=== PATIENT | male | born 1990 | race Two or more races ===

== ENCOUNTER 2023-03-25 07:11 | Outpatient (CLI) | payer OTHER | END 2023-03-25 07:12 | disposition home or self-care (01) | LOC: BICCT 07:11 | PROVIDERS: ATTEND Surgery | DX: M51.16 Intervertebral disc disorders with radiculopathy, lumbar region (principal); M43.17 Spondylolisthesis, lumbosacral region; M48.07 Spinal stenosis, lumbosacral region | CPT/HCPCS: 72131 ==

== ENCOUNTER 2023-05-31 09:09 | Outpatient (CLI) | payer OTHER ==
[2023-05-31 10:06] LABS: Anion Gap 15 mmol/L (10-20); BUN (Urea Nitrogen) 16 mg/dL (8.9-20.6); Calc. Creatinine Clearance 0 mL/min (70-130); Calcium 9.4 mg/dL (7.8-10.44); Carbon Dioxide 27 mmol/L (22-29); Chloride 102 mmol/L (98-107); Estimated GFR 70; Glucose 126 mg/dL (70-105); Hematocrit 48.4 % (38.8-50.0); Hemoglobin 16.4 g/dL (13.5-17.5); Mean Corpuscular HGB CONC 33.9 g/dL (32.0-36.0); Mean Corpuscular Volume 79.6 fl (81.2-95.1); Mean Platelet Volume 9.8 fl (7.4-10.4); PTT 33.9 sec (22.0-33.0); Platelet Count 242 10x3/uL (150-450); Potassium 4.1 mmol/L (3.5-5.1); Prothrombin Time 10.9 sec (9.5-12.1); RBC Distribution Width 12.9 % (11.5-14.5); Red Blood Cell (RBC) Count 6.08 10x6/uL (4.32-5.72); Sodium 140 mmol/L (136-145); White Blood Cell (WBC) Count 7.7 10x3/uL (3.5-10.5)
== END 2023-05-31 09:10 | disposition home or self-care (01) ==
LOC: LABBT 09:09
PROVIDERS: ATTEND Surgery
DX: Z01.818 Encounter for other preprocedural examination (principal); M47.26 Other spondylosis with radiculopathy, lumbar region
CPT/HCPCS: 80048; 85027; 85610; 85730; 93005; 93010

== ENCOUNTER 2023-06-02 05:38 | Inpatient (IN) | payer OTHER ==
[2023-05-31 09:42] VITALS: BMI 35.2
[2023-06-02] MEDS ORDERED: Vancomycin 1 GM VIAL ONE (06:26)
[2023-06-02] MEDS ORDERED: Thrombin 5000 UNITS/5 ML VIAL ONE (06:26)
[2023-06-02] MEDS ORDERED: Ketamine In 0.9 % NaCl 50 MG/5 ML SYRINGE ONE (06:48)
[2023-06-02] MEDS ORDERED: PROPOFOL 20 ML ONE (06:48)
[2023-06-02] MEDS ORDERED: Lidocaine 1% PF 5 ML VIAL ONE (06:48)
[2023-06-02] MEDS ORDERED: Fentanyl 250 MCG/5 ML VIAL ONE (06:48)
[2023-06-02] MEDS ORDERED: Rocuronium Bromide 10 MG/ML (10ML VIAL) ONE (06:48)
[2023-06-02] MEDS ORDERED: Midazolam HCl 2 mg/2 ml Vial ONE (07:21)
[2023-06-02] MEDS ORDERED: CEFAZOLIN 2 GM VIAL ONE (07:21)
[2023-06-02] MEDS ORDERED: Sodium Chloride 0.9% 100 ML ONE (07:22)
[2023-06-02] MEDS ORDERED: Ondansetron PF 4 MG/2 ML Vial ONE (08:31)
[2023-06-02] MEDS ORDERED: Dexamethasone 20 MG/5 ML VIAL ONE (08:31)
[2023-06-02] MEDS ORDERED: Ketorolac Tromethamine 30 MG (1 mL) VIAL ONE (08:31)
[2023-06-02] MEDS ORDERED: Sodium Chloride 0.9% 250 ML 250 ML ONE (08:38)
[2023-06-02] MEDS ORDERED: Vecuronium 10 MG VIAL ONE (09:51)
[2023-06-02] MEDS ORDERED: CEFAZOLIN 1 GM VIAL ONE (11:06)
[2023-06-02] MEDS ORDERED: Sterile Water 20 ML ONE (11:06)
[2023-06-02] MEDS ORDERED: NEOSTIGMINE 3 MG/3 ML SYR 3 MG/3 ML SYRINGE ONE (11:36)
[2023-06-02] MEDS ORDERED: Glycopyrrolate 0.2 MG/ML 5 ML SYRINGE ONE (11:36)
[2023-06-02] MEDS ORDERED: Lidocaine 2% PF 5 ML VIAL ONE (11:43)
[2023-06-02] MEDS ORDERED: Dexmedetomidine 200 MCG/2 ML VIAL ONE (11:58)
[2023-06-02] MEDS ORDERED: HYDROmorphone 2 MG/ML VIAL SLOW IVP PRN (12:14)
[2023-06-02] MEDS ORDERED: Promethazine HCl 25 MG/ML VIAL IM PRN ×2 (12:14→13:30)
[2023-06-02] MEDS ORDERED: PACU-Morphine 4MG/ML VIAL SLOW IVP PRN (12:14)
[2023-06-02] MEDS ORDERED: Morphine Sulfate 2 MG/ML SYRINGE SLOW IVP PRN (12:14)
[2023-06-02] MEDS ORDERED: Ondansetron HCl/PF 4 MG/2 ML Vial IVP PRN (12:14)
[2023-06-02] MEDS ORDERED: Acetaminophen 325 MG TAB PO PRN (12:36)
[2023-06-02] MEDS ORDERED: diphenhydrAMINE 25 MG CAP PO PRN ×2 (12:36→13:30)
[2023-06-02] MEDS ORDERED: Ondansetron PF 4 MG/2 ML Vial IVP PRN ×2 (12:36→13:30)
[2023-06-02] MEDS ORDERED: tiZANidine HCl 4 MG TAB PO PRN (12:38)
[2023-06-02] MEDS ORDERED: hydrOXYzine 25 MG TAB PO PRN (12:38)
[2023-06-02] MEDS ORDERED: HYDROmorphone 0.5 MG/0.5 ML SYRINGE ONE ×3 (13:05→13:47)
[2023-06-02] MEDS ORDERED: HYDROmorphone/PF 10 MG in Sodium Chloride 0.9% 99 ML IVPB PRN (13:30)
[2023-06-02] MEDS ORDERED: diphenhydrAMINE 50 MG/ML VIAL IM/IV PRN (13:30)
[2023-06-02] MEDS ORDERED: Naloxone HCl 0.4 mg/ml Vial IV PRN (13:30)
[2023-06-02] MEDS ORDERED: Zolpidem Tartrate 5 MG TAB PO PRN (13:30)
[2023-06-02] MEDS: Sodium Chloride 0.9% 1,000 ML IV SCH (14:45)
[2023-06-02] MEDS: Ketorolac Tromethamine 30 MG (1 mL) VIAL IVP SCH (18:21)
[2023-06-02] MEDS: CEFAZOLIN 2 GM in Sodium Chloride 0.9% 100 ML IVPB SCH (18:21)
[2023-06-02] MEDS: Sertraline 100 MG TAB PO SCH (20:17)
[2023-06-03 04:52] LABS: #Neutrophils 12.8 thou/uL (1.40-6.50); %Basophils 0.2 % (0.0-1.0); %Lymphocytes 14.6 % (21.0-51.0); %Monocytes 6.1 % (0.0-10.0); %Neutrophils 78.7 % (42.0-75.0); Hematocrit 38.7 % (42.0-52.0); Hemoglobin 12.8 g/dL (14.0-18.0); Mean Corpuscular HGB CONC 33.1 g/dL (32.0-36.0); Mean Corpuscular Hemoglobin 26.8 pg (27.0-31.0); Mean Corpuscular Volume 81.1 fl (78.0-98.0); Mean Platelet Volume 10.3 fL (7.4-10.4); Platelet Count 231 10x3/uL (130-400); RBC Distribution Width 12.9 % (11.5-14.5); Red Blood Cell (RBC) Count 4.77 mill/uL (4.70-6.10); White Blood Cell (WBC) Count 16.3 10x3/uL (4.8-10.8)
[2023-06-03 05:22] LABS: Anion Gap 12 mmol/L (10-20); BUN (Urea Nitrogen) 13 mg/dL (8.9-20.6); Calc. Creatinine Clearance 129 mL/min (70-130); Calcium 8.7 mg/dL (7.8-10.44); Carbon Dioxide 25 mmol/L (22-29); Chloride 105 mmol/L (98-107); Estimated GFR 83; Glucose 128 mg/dL (70-105); Potassium 3.6 mmol/L (3.5-5.1); Sodium 138 mmol/L (136-145)
[2023-06-03] MEDS ORDERED: HYDROcodone/Acetaminophen 5/325 mg Tablet PO PRN ×2 (06:53→07:05)
[2023-06-03] MEDS ORDERED: fentaNYL 50 mcg/mL 1 mL Vial SLOW IVP PRN (06:56)
[2023-06-03] MEDS ORDERED: AMPHETAMINE 20 MG PO SCH (09:00)
[2023-06-03] MEDS ORDERED: Ketorolac Tromethamine 30 MG (1 mL) VIAL IVP PRN (12:00)
[2023-06-05 05:45] VITALS: TEMP 98.7
[2023-06-05 07:40] VITALS: BP 124/74
== END 2023-06-05 09:45 | disposition home or self-care (01) | DRG 455 ==
LOC: SDC 05:38 → SURG B 12:40 → OBSVTOIN 06-03 13:43
PROVIDERS: ADMIT Surgery; ATTEND Surgery
PROC: 0SG30AJ Fusion of Lumbosacral Joint with Interbody Fusion Device, Posterior Approach, Anterior Column, Open Approach (ICD-10-PCS; principal; 2023-06-02)
PROC: 0SG3071 Fusion of Lumbosacral Joint with Autologous Tissue Substitute, Posterior Approach, Posterior Column, Open Approach (ICD-10-PCS; 2023-06-02)
PROC: 0SB40ZZ Excision of Lumbosacral Disc, Open Approach (ICD-10-PCS; 2023-06-02)
PROC: 01NB0ZZ Release Lumbar Nerve, Open Approach (ICD-10-PCS; 2023-06-02)
PROC: 01NR0ZZ Release Sacral Nerve, Open Approach (ICD-10-PCS; 2023-06-02)
DX: M43.17 Spondylolisthesis, lumbosacral region (principal); M48.061 Spinal stenosis, lumbar region without neurogenic claudication; M54.17 Radiculopathy, lumbosacral region; Z79.899 Other long term (current) drug therapy
CPT/HCPCS: 36415; 80048; 85025; 96365; 96375; 96376; A6258; C1713; C1889; G0378; J0690; J1100; J1170; J1885; J2001; J2250; J2405; J2704; J3010; J3370; J3490; J7050

== ENCOUNTER 2023-08-19 16:00 | Inpatient (IN) | payer OTHER ==
[2023-08-24] MEDS ORDERED: CEFAZOLIN 2 GM VIAL ONE (06:26)
[2023-08-24] MEDS ORDERED: Sodium Chloride 0.9% 100 ML ONE (06:26)
[2023-08-24] MEDS ORDERED: EPINEPHrine 1 MG/ML VIAL ONE (06:46)
[2023-08-24] MEDS ORDERED: Bupivacaine 0.25% HCL 30 ML VIAL ONE (06:47)
[2023-08-24] MEDS ORDERED: fentaNYL PF 100 MCG/2 ML SYRINGE ONE (07:03)
[2023-08-24] MEDS ORDERED: PROPOFOL 20 ML ONE (07:03)
[2023-08-24] MEDS ORDERED: Lidocaine 1% PF 5 ML VIAL ONE (07:04)
[2023-08-24] MEDS ORDERED: Rocuronium Bromide 10 MG/ML (10ML VIAL) ONE (07:04)
[2023-08-24] MEDS ORDERED: Scopolamine 1 mg/72 hour Patch ONE (07:21)
[2023-08-24] MEDS ORDERED: Dexamethasone 20 MG/5 ML VIAL ONE (07:50)
[2023-08-24] MEDS ORDERED: Ondansetron PF 4 MG/2 ML Vial ONE ×2 (07:50→09:19)
[2023-08-24] MEDS ORDERED: FENTANYL 500 MCG/10 ML VIAL 2,000 MCG in Sodium Chloride 0.9% 60 ML IV PRN (07:58)
[2023-08-24] MEDS ORDERED: Ondansetron HCl/PF 4 MG/2 ML Vial IVP PRN (07:58)
[2023-08-24] MEDS ORDERED: diphenhydrAMINE 50 MG/ML VIAL IVP PRN ×2 (07:58→11:12)
[2023-08-24] MEDS ORDERED: Naloxone HCl 0.4 mg/ml Vial IV PRN (07:58)
[2023-08-24] MEDS ORDERED: diphenhydrAMINE 50 MG/ML VIAL IM PRN (07:58)
[2023-08-24] MEDS ORDERED: Ondansetron PF 4 MG/2 ML Vial IVP PRN ×2 (07:58→11:12)
[2023-08-24] MEDS ORDERED: Promethazine HCl 25 MG/ML VIAL IM PRN ×3 (07:58→11:12)
[2023-08-24] MEDS ORDERED: diphenhydrAMINE 25 MG CAP PO PRN (07:58)
[2023-08-24] MEDS ORDERED: Communication Order-Pharmacy FS SCH (08:00)
[2023-08-24] MEDS ORDERED: SUGAMMADEX SODIUM 200 MG/2 ML VIAL ONE (08:27)
[2023-08-24] MEDS ORDERED: hydrOXYzine 25 MG TAB PO PRN (11:12)
[2023-08-24] MEDS ORDERED: Ipratropium/Albuterol 3 ML NEB NEB PRN (11:12)
[2023-08-24] MEDS ORDERED: Dextrose 5% in Water 1,000 ML IV PRN (11:12)
[2023-08-24] MEDS ORDERED: Glucagon 1 MG/ML KIT IM PRN (11:12)
[2023-08-24] MEDS ORDERED: Dextrose 50% Abboject 50 ML SYRINGE SLOW IVP PRN (11:12)
[2023-08-24] MEDS ORDERED: Ketorolac Tromethamine 30 MG (1 mL) VIAL IVP PRN (11:12)
[2023-08-24] MEDS ORDERED: Hydrocodone-Acetamin 15 ML UDCUP PO PRN (11:12)
[2023-08-24] MEDS ORDERED: hydrALAZINE 20 MG/ML VIAL SLOW IVP PRN (11:12)
[2023-08-24] MEDS: BuPROPion XL 150 MG ER.TAB PO SCH (12:00)
[2023-08-24] MEDS: Sertraline 100 MG TAB PO SCH (12:00)
[2023-08-24] MEDS: Pantoprazole 40 MG VIAL IVP SCH (12:28)
[2023-08-24] MEDS: D5 1/2 NS w/20 mEq KCL 1,000 ML IV SCH (12:29)
[2023-08-24 13:17] VITALS: BMI 36.5
[2023-08-25 05:17] LABS: #Basophils 0.04 10x3/uL (0.0-0.2); #Eosinphils Less than 0.03 10x3/uL (0.0-0.7); %Basophils 0.3 % (0.0-1.0); %Lymphocytes 18.6 % (21.0-51.0); %Monocytes 7.6 % (0.0-10.0); %Neutrophils 73.2 % (42.0-75.0); Hematocrit 42.9 % (42.0-52.0); Hemoglobin 14.5 g/dL (14.0-18.0); Mean Corpuscular HGB CONC 33.8 g/dL (32.0-36.0); Mean Corpuscular Hemoglobin 26.7 pg (27.0-31.0); Mean Corpuscular Volume 78.9 fL (78.0-98.0); Platelet Count 252 10x3/uL (130-400); RBC Distribution Width 13.5 % (11.5-14.5); Red Blood Cell (RBC) Count 5.44 mill/uL (4.70-6.10)
[2023-08-25 06:15] LABS: Anion Gap 14 mmol/L (10-20); BUN (Urea Nitrogen) 9 mg/dL (8.9-20.6); Calc. Creatinine Clearance 133 mL/min (70-130); Calcium 9.4 mg/dL (7.8-10.44); Carbon Dioxide 23 mmol/L (22-29); Chloride 106 mmol/L (98-107); Estimated GFR 83; Glucose 125 mg/dL (70-105); Potassium 4.1 mmol/L (3.5-5.1); Sodium 139 mmol/L (136-145)
[2023-08-25] MEDS: Enoxaparin 40 MG (0.4 mL) SYRINGE SC SCH (06:31)
[2023-08-25 09:16] VITALS: BP 121/70; TEMP 99.2
[2023-08-25] MEDS: BuPROPion XL 150 MG ER.TAB PO SCH (09:20)
[2023-08-25] MEDS: Sertraline 100 MG TAB PO SCH (09:20)
[2023-08-25] MEDS: Pantoprazole 40 MG VIAL IVP SCH (09:20)
[2023-08-26] MEDS ORDERED: Enoxaparin 40 MG (0.4 mL) SYRINGE SC SCH (09:00)
== END 2023-08-25 09:45 | disposition home or self-care (01) | DRG 621 ==
LOC: SURG A 08-24 05:37 → SURG B 08-24 10:53
PROVIDERS: ADMIT Surgery; ATTEND Surgery
PROC: 0DB64Z3 Excision of Stomach, Percutaneous Endoscopic Approach, Vertical (ICD-10-PCS; principal; 2023-08-24)
PROC: 8E0W4CZ Robotic Assisted Procedure of Trunk Region, Percutaneous Endoscopic Approach (ICD-10-PCS; 2023-08-24)
DX: E66.01 Morbid (severe) obesity due to excess calories (principal); Z68.36 Body mass index [BMI] 36.0-36.9, adult; G47.33 Obstructive sleep apnea (adult) (pediatric); Z79.899 Other long term (current) drug therapy; F41.9 Anxiety disorder, unspecified; F32.A Depression, unspecified; Z98.890 Other specified postprocedural states; Z83.3 Family history of diabetes mellitus; Z82.49 Family history of ischemic heart disease and other diseases of the circulatory system
CPT/HCPCS: 36415; 80048; 85025; 88307; C9113; J0171; J0665; J1100; J1650; J2405; J2704; J3480; J3490